=== PATIENT | female | born 1985 | race Caucasian/White ===

== ENCOUNTER → 2020-04-11 | Outpatient (CLI) | payer OTHER ==
--- NOTE | 2020-04-11 15:26 | PFTRPT ---
Height: 61.50 Inches Weight: 149.00 Lbs BSA: 1.68 Diagnosis: J44.9 DATE: 04/11/2020 ORDERED BY: KELLY SIMON D.O. Pre and post bronchodilator studies have excellent technical quality. Forced vital capacity is normal. FEV1 is in proportion. Obstructive index is therefore normal. Expiratory limit of the flow-volume loop is normal. No significant bronchodilator response is identified. IMPRESSION: Normal study with no bronchodilator change. MTDD
== END ==
LOC: M CARPUL 14:54
PROVIDERS: ATTEND Neuromusculoskeletal Medicine & OMM
DX: J44.9 Chronic obstructive pulmonary disease, unspecified (principal)